=== PATIENT | female | born 1950 | race Caucasian/White ===

== ENCOUNTER → 2018-01-08 | Outpatient (CLI) | payer OTHER ==
[~2018-01-08] MED LIST: ASPIR 8181 MG PO; ESTRACE0.5 MG PO; LEVOTHYROXIN0.075 MG PO; OMEPRAZOLE20 M2 PO; OXYBUTYNIN 5 MG5 M2 PO; PRAVACHOL40 MG PO; PROVERA2.5 MG PO; RANITIDINE HCL300 MG PO
== END ==
LOC: ULTRA 07:52
DX: R10.11 Right upper quadrant pain (principal)

== ENCOUNTER → 2019-07-20 | Outpatient (CLI) | payer OTHER | LOC: CAT 10:07 | DX: Z13.6 Encounter for screening for cardiovascular disorders (principal); E78.00 Pure hypercholesterolemia, unspecified; I25.10 Atherosclerotic heart disease of native coronary artery without angina pectoris ==

== ENCOUNTER → 2019-08-19 | Outpatient (CLI) | payer OTHER | LOC: ULTRA 08:29 | DX: R10.84 Generalized abdominal pain (principal) ==

== ENCOUNTER → 2019-08-31 | Outpatient (CLI) | payer OTHER | LOC: NUC 07:17 | DX: R10.9 Unspecified abdominal pain (principal) ==

== ENCOUNTER → 2020-04-18 | Outpatient (CLI) | payer OTHER | LOC: SJCVCIMAG 09:53 | PROVIDERS: ATTEND Internal Medicine Cardiovascular Disease | DX: I08.1 Rheumatic disorders of both mitral and tricuspid valves (principal); E78.00 Pure hypercholesterolemia, unspecified; I10 Essential (primary) hypertension; Z87.891 Personal history of nicotine dependence; Z82.49 Family history of ischemic heart disease and other diseases of the circulatory system ==

== ENCOUNTER → 2021-07-11 | Outpatient (CLI) | payer OTHER | LOC: SJCVC 10:05 | PROVIDERS: ATTEND Internal Medicine Cardiovascular Disease | DX: I10 Essential (primary) hypertension (principal); E78.00 Pure hypercholesterolemia, unspecified; M62.81 Muscle weakness (generalized); E78.5 Hyperlipidemia, unspecified; Z82.49 Family history of ischemic heart disease and other diseases of the circulatory system; E55.9 Vitamin D deficiency, unspecified; K21.9 Gastro-esophageal reflux disease without esophagitis; E66.9 Obesity, unspecified; M19.90 Unspecified osteoarthritis, unspecified site; Z98.890 Other specified postprocedural states; Z79.82 Long term (current) use of aspirin; Z79.899 Other long term (current) drug therapy; Z87.891 Personal history of nicotine dependence; Z88.5 Allergy status to narcotic agent ==

== ENCOUNTER → 2021-08-30 | Outpatient (CLI) | payer OTHER | LOC: MRI 08:25 | PROVIDERS: ATTEND Family Medicine | DX: S73.191A Other sprain of right hip, initial encounter (principal); S83.61XA Sprain of the superior tibiofibular joint and ligament, right knee, initial encounter; M25.851 Other specified joint disorders, right hip; M16.11 Unilateral primary osteoarthritis, right hip; X58.XXXA Exposure to other specified factors, initial encounter; Y93.89 Activity, other specified; Y92.89 Other specified places as the place of occurrence of the external cause; Y99.8 Other external cause status ==

== ENCOUNTER → 2021-09-13 | Outpatient (CLI) | payer OTHER | LOC: MRI 13:56 | PROVIDERS: ATTEND Family Medicine | DX: M47.816 Spondylosis without myelopathy or radiculopathy, lumbar region (principal); Q76.49 Other congenital malformations of spine, not associated with scoliosis; M51.26 Other intervertebral disc displacement, lumbar region; G96.191 Perineural cyst ==